=== PATIENT | female | born 1990 | race Caucasian/White ===

== ENCOUNTER 2019-05-18 15:20 | Emergency (ER) | payer MEDICAID, OTHER ==
[2019-05-18 15:54] VITALS: BP 114/84
--- NOTE | 2019-05-18 16:07 | UC ---
Throat Pain/Nasal [place] HPI - HPI Summary HPI Summary: Patient presents to urgent care with sore throat or ear pain and sinus congestion progressive the last 4-5 days. Patient states when she blows her nose sometimes is green and sometimes blood-tinged. Patient states her throat hurts from postnasal drip. Patient denies cough chest pain shortness of breath. No nausea vomiting diarrhea. No fevers or chills. Patient has not taken any medication treated. Patient states she is . Patient's medications was entered in the EMR by triage nurse of been reviewed. - History of Current Complaint Chief Complaint: UCRespiratory Stated Complaint: SORE THROAT Time Seen by Provider: 05/18/19 15:45 Hx Obtained From: Patient Hx Last Menstrual Period: "Haven't had none ... I'm on the Depo." Pain Intensity: 7 - Allergies/Home Medications Allergies/Adverse Reactions: Allergies Allergy/AdvReac Type Severity Reaction Status Date / Time latex Allergy "Very bad Verified 05/18/19 15:48 problem ... after latex condom" Penicillins Allergy "My lungs Verified 05/18/19 15:48 swell up. I break out. It's difficult to breathe." Home Medications: Home Medications LoraTADine TAB(NF) [Claritin 10 MG TAB(NF)] 10 mg PO DAILY 05/18/19 [History Confirmed 05/18/19] Methylphenidate HCl [Methylphenidate HCl ER] 40 mg PO DAILY 05/18/19 [History Confirmed 05/18/19] Pantoprazole TAB * [Protonix TAB*] 40 mg PO DAILY 05/18/19 [History Confirmed ] Sulfamethox/Trimethoprim DS* [Bactrim DS 800/160 TAB*] 1 tab PO BID 05/18/19 [ History Confirmed 05/18/19] diPHENhydraMINE PO* [Benadryl PO 25 MG TAB*] 25 - 50 mg PO Q6H PRN 05/18/19 [ History Confirmed 05/18/19] medroxyPROGESTERone ACETATE* [DEPO-Provera] 150 mg IM Q90D 05/18/19 [History Confirmed 05/18/19] PMH/Surg Hx/FS Hx/Imm Hx Previously Healthy: Yes - Surgical History Surgical History: Yes Surgery Procedure, Year, and Place: Right Oopherectomy, 2011, [place] - Family History Known Family History: Positive: Non-Contributory - Social History Occupation: Unemployed Lives: With Family Alcohol Use: None Substance Use Type: None Smoking Status (MU): Heavy Every Day Tobacco Smoker Type: Cigarettes Amount Used/How Often: ~1/2 PPD Length of Time of Smoking/Using Tobacco: Since Age 18 Review of Systems All Other Systems Reviewed And Are Negative: Yes Constitutional: Positive: Fatigue ENT: Positive: Sore Throat, Ear Ache - This point, Nasal Discharge, Sinus Congestion, Sinus Pain/Tenderness Respiratory: Positive: Negative Cardiovascular: Positive: Negative Gastrointestinal: Positive: Negative Motor: Positive: Negative Is Patient Immunocompromised?: No Physical Exam - Summary Physical Exam Summary: Vital Signs Reviewed: Yes A+Ox3, no distress, speaking full easy sentences Eyes: Conjunctiva Clear, ROSALINO. EOM intact and full ENT: Hearing grossly normal TM x 2 with fluid, right ++ erythema, turbinates inflammed and boggy, + PND, mmoist, uvula midline, no exudate, no erythema Neck: Positive: Supple Respiratory: Positive: No respiratory distress, No accessory muscle use + CTA throughout no w/r Cardiovascular: RRR nl s1, s2 no m/r CBT <2 sec abd soft + BS nt/nd no guarding, no distension Musculoskeletal Exam: REDDING x 4 without difficulty Strength Intact, ROM Intact Neurological: Positive: Alert, + sensation throughout Psychological: Positive: Normal Response To early childhood education instructor Skin: Positive: no rash, no ecchymosis Triage Information Reviewed: Yes Vital Signs: Initial Vital Signs Temp 98.4 F 05/18/19 15:43 Pulse 90 05/18/19 15:43 Resp 16 05/18/19 15:43 BP 114/84 05/18/19 15:43 Pulse Ox 100 05/18/19 15:43 Throat Pain/Nasal Course/Dx - Course Course Of Treatment: Patient presents to urgent care with progressive sore throat ear pain and nasal congestion. Patient was greenish red tinged secretions from her nose. Patient patient states her throat hurts Jeffy to postnasal drip. Patient has not taken any [id number] medications. On exam vital signs are stable. Patient exam consistent with otitis media with worsening left. Patient also with rhinosinusitis. No action or tonsils. Strep was not done. We'll start patient on a vice. Flonase. Strict return precautions. Secretion precautions. Motrin Tylenol. Patient comfortable with plan. - Differential Dx/Diagnosis Provider Diagnosis: Rhinosinusitis, Otitis media of left ear Discharge ED - Sign-Out/Discharge Documenting (check all that apply): Patient Departure All imaging exams completed and their final reports reviewed: No Studies - Discharge Plan Condition: Stable Disposition: HOME Prescriptions: Azithromycin TAB* [Zithromax TAB (Z-TIANNA) 250 mg #6 tabs] 2 tab PO .TODAY, THEN 1 DAILY #1 tianna Fluticasone NASAL SPRAY 50MCG* [Flonase NASAL SPRAY 50MCG*] 2 spray BOTH NARES DAILY #1 btl Patient Education Materials: Ear Infection (ED), Rhinosinusitis (ED) Referrals: Marsha Hensley NP [Primary Care Provider] - Additional Instructions: - Okay to gargle and spit warm salt water every 4 hours as needed for pain - Stay well hydrated - frequent sips of cold fluids will be soothing to your throat (popsicles, jello, ice cream, ice water). Avoid excess caffeine until your symptoms have resolved. -Throat infections are spread by oral secretions - do not share eating or drinking utensils until you symptoms are resolved. Clean items that may get your secretions such as cell phones, ipads, computer mouse, television remotes. Once you have been on antibiotics, change your toothbrush and your pillowcase. - use nasal spray as prescribed - take antibiotics as prescribed - humidify the air in the room where you sleep - boil water, run a hot steam shower, vaporizer, cups of water by heat register - Okay to take over the counter cough and decongestant medication - Contact your doctor to arrange a follow-up appointment as needed - Billing Disposition and Condition Condition: STABLE Disposition: Home
[2019-05-19 15:25] LABS: HIV 4th Generation Nonreactive (Nonreactive)
== END 2019-05-18 16:32 | disposition home or self-care (01) ==
LOC: UCCORT 15:20
DX: J32.9 Chronic sinusitis, unspecified (principal); H66.92 Otitis media, unspecified, left ear; F17.210 Nicotine dependence, cigarettes, uncomplicated; Z91.040 Latex allergy status; Z88.0 Allergy status to penicillin
CPT/HCPCS: 36415; 87389; 99212; G0463